=== PATIENT | male | born 1945 | race Caucasian/White ===

== ENCOUNTER 2017-11-02 05:57 | Inpatient (IN) | payer OTHER ==
[2017-11-02] MEDS ORDERED: CEFAZOLIN 2 GM/50 ML (PMX) 50 ML (FOR WT < 120 KG) IVPB (07:00)
[2017-11-02] MEDS ORDERED: LACTATED RINGER'S 1,000 ML IV (07:00)
[2017-11-02] MEDS ORDERED: MIDAZOLAM 1 MG/ML 2 ML INJ (07:37)
[2017-11-02] MEDS ORDERED: ROCURONIUM 50 MG INJ (07:37)
[2017-11-02] MEDS ORDERED: LIDOCAINE 1% (MDV) 20 ML INJ (07:37)
[2017-11-02] MEDS ORDERED: ETOMIDATE 20 MG INJ (07:37)
[2017-11-02] MEDS ORDERED: FENTAnyl 50 MCG/ML VIAL (07:43)
[2017-11-02] MEDS ORDERED: BUPIVACAINE 0.75%/DEXT (SPINAL) 2 ML INJ (07:45)
[2017-11-02] MEDS ORDERED: ONDANSETRON 4 MG INJ (08:16)
[2017-11-02] MEDS ORDERED: CEFAZOLIN 1 GM INJ (08:16)
[2017-11-02] MEDS ORDERED: DEXAMETHASONE 4 MG/ML 1 ML INJ (08:16)
[2017-11-02] MEDS ORDERED: FAMOTIDINE 20 MG INJ (08:16)
[2017-11-02] MEDS: TRANEXAMIC ACID 1,000 MG in NS 100 ML PRE-OP X1 IVPB ×2 (08:18→08:19)
[2017-11-02] MEDS: BACITRACIN 50000 UNITS INJ (08:30)
[2017-11-02] MEDS: POLYMYXIN B 500000 UNIT INJ (08:30)
[2017-11-02] MEDS: TRANEXAMIC ACID 1,000 MG in NS 100 ML INTRA-OP X1 IVPB ×2 (08:32→09:47)
[2017-11-02] MEDS ORDERED: PHENYLephrine (100 MCG/ML) 5ML SYG (08:40)
[2017-11-02] MEDS ORDERED: SUGAMMADEX SODIUM 200 MG/2 ML VIAL IV (09:35)
[2017-11-02] MEDS ORDERED: MAGNESIUM HYDROXIDE 30ML CUP PO (10:00)
[2017-11-02] MEDS ORDERED: NALOXONE (0.4 MG/ML) INJ IV (10:00)
[2017-11-02] MEDS ORDERED: BISACODYL 10 MG SUPP PR (10:00)
[2017-11-02] MEDS ORDERED: NACL 0.9% 3 ML SYG IV (10:00)
[2017-11-02] MEDS ORDERED: hydrALAzine 20 MG INJ IV (10:00)
[2017-11-02] MEDS ORDERED: MEPERIDINE 25 MG INJ IV (10:00)
[2017-11-02] MEDS ORDERED: DIPHENHYDRAMINE 50 MG INJ IM (10:00)
[2017-11-02] MEDS ORDERED: ONDANSETRON 4 MG INJ IV (10:00)
[2017-11-02] MEDS: ONDANSETRON 4 MG INJ IV ×3 (10:00→22:30)
[2017-11-02] MEDS ORDERED: NA PHOSPHATE/BIPHOS 133 ML ENEMA PR (10:00)
[2017-11-02] MEDS ORDERED: LABETALOL HCL 20MG INJ IV (10:00)
[2017-11-02] MEDS ORDERED: oxyCODONE 5 MG TAB PO ×2 (10:00)
[2017-11-02] MEDS ORDERED: HYDROmorphONE (0.2 MG/ML) 10ML SYG IV ×2 (10:00)
[2017-11-02] MEDS: DOCUSATE SODIUM 100 MG CAP PO (10:32)
[2017-11-02] MEDS: ASPIRIN (EC) 325 MG TAB PO (10:33)
[2017-11-02] MEDS: CEFAZOLIN 1 GM/50 ML (PMX) 50 ML IVPB ×2 (10:35→18:18)
[2017-11-02] MEDS: LOSARTAN 50 MG TAB PO (12:00)
[2017-11-02] MEDS ORDERED: TAMSULOSIN (SR) 0.4 MG CAP PO (12:00)
[2017-11-02] MEDS: SOD CHLORIDE 0.9% 1,000 ML IV ×2 (13:21→22:18)
[2017-11-02] MEDS: FENOFIBRATE 145 MG TAB PO (15:50)
[2017-11-02] MEDS: TAMSULOSIN (SR) 0.4 MG CAP PO (20:11)
[2017-11-03] MEDS: oxyCODONE 5 MG TAB PO ×4 (00:19→23:40)
[2017-11-03] MEDS: CEFAZOLIN 1 GM/50 ML (PMX) 50 ML IVPB (02:14)
[2017-11-03] MEDS: ONDANSETRON 4 MG INJ IV (04:13)
[2017-11-03 05:23] LABS: ADD MAN DIFF? NO
[2017-11-03 05:24] LABS: BASOPHILS % 0.1 % (0.0-2.0); EOSINOPHILS % 0.1 % (0.0-7.0); HEMATOCRIT 30.8 % (42.0-52.0); HEMOGLOBIN 9.6 g/dl (14.0-18.0); LYMPHOCYTES # 1.7 10^3/ul (0.8-2.9); LYMPHOCYTES % 23.6 % (15.0-51.0); MEAN CORPUSCULAR HEMOGLOBIN 26.5 pg (29.0-33.0); MEAN CORPUSCULAR HGB CONC 31.2 g/dl (32.0-37.0); MEAN CORPUSCULAR VOLUME 85.1 fl (82.0-101.0); MEAN PLATELET VOLUME 9.5 fl (7.4-10.4); MONOCYTE # 0.7 10^3/ul (0.3-0.9); MONOCYTES % 10.3 % (0.0-11.0); NEUTROPHIL # 4.7 10^3/ul (1.6-7.5); NEUTROPHILS % 65.6 % (39.0-77.0); PLATELET COUNT 275 10^3/UL (140-415); RED BLOOD COUNT 3.62 10^6/ul (4.70-6.10); RED CELL DISTRIBUTION WIDTH 13.5 % (11.5-14.5)
[2017-11-03 05:24] LABS: WHITE BLOOD COUNT 7.2 10^3/ul (4.8-10.8)
[2017-11-03 06:00] LABS: ANION GAP 12 (8-16); BLOOD UREA NITROGEN 22 mg/dl (7-20); CALCIUM 8.9 mg/dl (8.4-10.2); CARBON DIOXIDE 27 mmol/L (21-31); CHLORIDE 108 mmol/L (97-110); CREATININE 1.01 mg/dl (0.61-1.24); GLUCOSE 100 mg/dl (70-220); POTASSIUM 4.2 mmol/L (3.5-5.1); SODIUM 143 mmol/L (135-144)
[2017-11-03] MEDS: BETHANECHOL 25 MG TAB PO (06:32)
[2017-11-03] MEDS: PANTOPRAZOLE (EC) 40 MG TAB PO (06:32)
[2017-11-03] MEDS ORDERED: CELECOXIB 200 MG CAP PO (09:00)
[2017-11-03] MEDS: DOCUSATE SODIUM 100 MG CAP PO ×2 (09:04→20:29)
[2017-11-03] MEDS: FERROUS FUMARATE (SR) TAB PO ×2 (09:04→20:29)
[2017-11-03] MEDS: FENOFIBRATE 145 MG TAB PO (09:05)
[2017-11-03] MEDS: ASPIRIN (EC) 325 MG TAB PO (09:05)
[2017-11-03] MEDS: LOSARTAN 50 MG TAB PO (09:06)
[2017-11-03 09:49] LABS: ADD UMIC YES; UR ASCORBIC ACID NEGATIVE (NEGATIVE); UR BILIRUBIN (Dip) NEGATIVE (NEGATIVE); UR BLOOD (Dip) NEGATIVE (NEGATIVE); UR CLARITY CLEAR (CLEAR); UR COLOR STRAW (YELLOW); UR GLUCOSE (Dip) NEGATIVE (NEGATIVE); UR KETONES (Dip) NEGATIVE (NEGATIVE); UR LEUKOCYTE ESTERASE (Dip) TRACE Leu/ul (NEGATIVE); UR NITRITE (Dip) NEGATIVE (NEGATIVE); UR RBC 4 /HPF (0-5); UR SPECIFIC GRAVITY (Dip) 1.009 (1.003-1.030); UR TOTAL PROTEIN (Dip) NEGATIVE (NEGATIVE); UR UROBILINOGEN (Dip) NEGATIVE (NEGATIVE); UR WBC 1 /HPF (0-5)
[2017-11-03] MEDS: CELECOXIB 100 MG CAP PO ×2 (11:19→20:29)
[2017-11-03] MEDS: TAMSULOSIN (SR) 0.4 MG CAP PO (20:29)
[2017-11-04] MEDS: KETOROLAC 15 MG INJ IV (00:22)
[2017-11-04 05:29] LABS: ADD MAN DIFF? NO
[2017-11-04 05:30] LABS: BASOPHILS % 0.3 % (0.0-2.0); EOSINOPHILS # 0.1 10^3/ul (0.0-0.5); EOSINOPHILS % 0.8 % (0.0-7.0); HEMATOCRIT 31.6 % (42.0-52.0); HEMOGLOBIN 9.9 g/dl (14.0-18.0); LYMPHOCYTES # 1.3 10^3/ul (0.8-2.9); LYMPHOCYTES % 20.7 % (15.0-51.0); MEAN CORPUSCULAR HEMOGLOBIN 26.7 pg (29.0-33.0); MEAN CORPUSCULAR HGB CONC 31.3 g/dl (32.0-37.0); MEAN CORPUSCULAR VOLUME 85.2 fl (82.0-101.0); MEAN PLATELET VOLUME 9.7 fl (7.4-10.4); MONOCYTE # 0.6 10^3/ul (0.3-0.9); MONOCYTES % 10.3 % (0.0-11.0); NEUTROPHIL # 4.2 10^3/ul (1.6-7.5); NEUTROPHILS % 67.7 % (39.0-77.0); PLATELET COUNT 260 10^3/UL (140-415); RED BLOOD COUNT 3.71 10^6/ul (4.70-6.10); RED CELL DISTRIBUTION WIDTH 13.4 % (11.5-14.5)
[2017-11-04 05:30] LABS: WHITE BLOOD COUNT 6.2 10^3/ul (4.8-10.8)
[2017-11-04 05:46] LABS: ANION GAP 12 (8-16); BLOOD UREA NITROGEN 29 mg/dl (7-20); CALCIUM 9.3 mg/dl (8.4-10.2); CARBON DIOXIDE 30 mmol/L (21-31); CHLORIDE 106 mmol/L (97-110); CREATININE 1.14 mg/dl (0.61-1.24); GLUCOSE 129 mg/dl (70-220); POTASSIUM 4.6 mmol/L (3.5-5.1); SODIUM 143 mmol/L (135-144)
[2017-11-04] MEDS: SENNA/DOCUSATE NA (8.6MG/50MG) TAB PO (06:10)
[2017-11-04] MEDS: PANTOPRAZOLE (EC) 40 MG TAB PO (06:10)
[2017-11-04] MEDS: FENOFIBRATE 145 MG TAB PO (08:37)
[2017-11-04] MEDS: CELECOXIB 100 MG CAP PO (08:37)
[2017-11-04] MEDS: DOCUSATE SODIUM 100 MG CAP PO (08:37)
[2017-11-04] MEDS: FERROUS FUMARATE (SR) TAB PO (08:38)
[2017-11-04] MEDS: ASPIRIN (EC) 325 MG TAB PO (08:38)
[2017-11-04] MEDS: LOSARTAN 50 MG TAB PO (08:39)
[2017-11-04] MEDS: oxyCODONE 5 MG TAB PO (09:41)
[2017-11-04] MEDS: ONDANSETRON 4 MG INJ IV (14:21)
== END 2017-11-04 15:00 | DRG 470 ==
LOC: REC 05:57 → MS1 11-03 07:45
PROC: 0SR902A Replacement of Right Hip Joint with Metal on Polyethylene Synthetic Substitute, Uncemented, Open Approach (ICD-10-PCS; principal; 2017-11-02 07:30)
DX: M16.11 Unilateral primary osteoarthritis, right hip (principal)
CPT/HCPCS: 72170; 80048; 81001; 85025; 86850; 86900; 86901; 87081; 87086; 88304; 88311; 97110; 97116; 97161; 97165; 97530